=== PATIENT | female | born 1970 | race African-American/Black ===

== ENCOUNTER 2018-02-03 12:34 | Emergency (ER) | payer SELFPAY ==
[2018-02-03] MEDS ORDERED: AMLODIPINE BESYLATE 10 MG TABLET PO ONE (13:53)
--- NOTE | 2018-02-03 13:54 | ER Document Report ---
ED Blood Pressure Problem - General Chief Complaint: High Blood Pressure Stated Complaint: R SHOULDER PAIN Time Seen by Provider: 02/03/18 13:46 Notes: 47-year-old female patient to the emergency department for evaluation of hypertension and right shoulder pain. Patient states that she has had shoulder pain for approximately 2 months. Has not been taking her blood pressure medication. Made an appointment to see her primary care doctor. Went to see her primary care doctor today but her blood pressure was 210/100. They were nervous about her shoulder pain and high blood pressure and sent her to the emergency department for evaluation. Patient states that she has not been taking her blood pressure medications and that is the reason why her her blood pressure is high. States that her shoulder has been achy for approximately 2 months now and it is affecting her workouts. She denies any chest pain, shortness of breath, cardiac symptoms or other issues at this time. TRAVEL OUTSIDE OF THE [place] IN LAST 30 DAYS: No - HPI Onset/Duration: Gradual Severity: Mild Pain Level: 1 - Related Data Allergies/Adverse Reactions: No Known Allergies Allergy (Verified 02/03/18 12:36) Past Medical History - General Information source: Patient - Social History Smoking Status: Current Every Day Smoker Chew tobacco use (# tins/day): No Frequency of alcohol use: Occasional Drug Abuse: None Lives with: Family Family History: Reviewed & Not Pertinent Patient has suicidal ideation: No Patient has homicidal ideation: No - Past Medical History Cardiac Medical History: Reports: Hx Hypertension Renal/ Medical History: Denies: Hx Peritoneal Dialysis Review of Systems - Review of Systems Notes: Constitutional: denies: Chills, Diaphoresis, Fever, Malaise, Weakness EENT: denies: Eye discharge, Blurred vision, Tearing, Double vision, Nose congestion, Nose discharge, Throat swelling, Mouth pain Cardiovascular: denies: Palpitations, Heart racing, Orthopnea, Dyspnea, Chest pain. Does complain of hypertension but has not been taking her medications. Respiratory: denies: Cough, Hurts to breathe, Wheezing, Shortness of breath Gastrointestinal: denies: Abdominal pain, Diarrhea, Nausea, Vomiting, Black stools, bright red blood in stool Genitourinary: denies: Burning, Dysuria, Discharge, Frequency, Flank pain, Hematuria Musculoskeletal: Complains of right shoulder pain, stiffness in the right shoulder, no swelling. Hematologic/Lymphatic: denies: Anemia, Easy bleeding, Easy bruising, Blood clots Neurological/Psychological: denies: Confusion, Dementia, Depression, Loss of consciousness Skin: No lesions, no masses, no skin breakdown, no abscesses Physical Exam - Vital signs Vitals: Temp Pulse Resp BP Pulse Ox 98.9 F 73 18 151/93 H 100 02/03/18 13:02 02/03/18 13:02 02/03/18 13:02 02/03/18 13:02 02/03/18 13:02 Interpretation: Bradycardic - General General appearance: Appears well, Alert - HEENT Head: Normocephalic, Atraumatic Eyes: Normal Pupils: PERRL - Respiratory Respiratory status: No respiratory distress Chest status: Nontender Breath sounds: Normal Chest palpation: Normal - Cardiovascular Rhythm: Bradycardia, Other - Manual heart rate 54 Heart sounds: Normal auscultation Murmur: No - Abdominal Inspection: Normal Distension: No distension Bowel sounds: Normal Tenderness: Nontender Organomegaly: No organomegaly - Back Back: Normal, Nontender - Extremities General upper extremity: Normal inspection, Normal color, Normal ROM, Normal temperature, Other - There is point tenderness with provocation at the biceps tendon insertion on the right anterior shoulder. General lower extremity: Normal inspection, Nontender, Normal color, Normal ROM , Normal temperature, Normal weight bearing. No: Vickie's sign - Neurological Neuro grossly intact: Yes Cognition: Normal Orientation: AAOx4 [place] Coma Scale Eye Opening: Spontaneous [place] Coma Scale Verbal: Oriented [place] Coma Scale Motor: Obeys Commands Gene Coma Scale Total: 15 Speech: Normal Motor strength normal: LUE, RUE, LLE, RLE Sensory: Normal - Psychological Associated symptoms: Normal affect, Normal mood - Skin Skin Temperature: Warm Skin Moisture: Dry Skin Color: Normal Course - Re-evaluation Re-evalutation: 02/03/18 15:26 Well-appearing female in no acute distress who has not been taking her blood pressure medications so her blood pressure is elevated. Received some clonidine at the doctor's office and sent here. I did give her amlodipine while she was here since she had not taken it. Patient adamantly denies any other symptoms. Adamantly states that her shoulder pain is been there for 2 months and is not related to her hypertension. I did an EKG which showed sinus bradycardia with some nonspecific T-wave abnormalities and LVH. I do not think this represents an acute cardiac condition. At this time I am recommending that she follow-up with her regular doctor to have her shoulder evaluated further and to restart her blood pressure medications. States that her blood pressure medications were called in to her primary care doctor and the pharmacist has notified her since she is in the emergency department that prescriptions are ready for pickup. Will DC at this time. - Vital Signs Vital signs: Temp Pulse Resp BP Pulse Ox 98.9 F 73 18 145/94 H 100 02/03/18 13:02 02/03/18 13:02 02/03/18 13:02 02/03/18 15:14 02/03/18 13:02 - EKG Interpretation by Me EKG shows normal: [place], Intervals, QRS Complexes, ST-T Waves - Nonspecific T- wave with some biphasic T waves in the anterior lateral leads. No priors are available for comparison. Rate: Bradycardia Discharge - Discharge Clinical Impression: Hypertension Qualifiers: Hypertension type: unspecified Qualified Code(s): I10 - Essential (primary) hypertension Right shoulder pain Qualifiers: Chronicity: chronic Qualified Code(s): M25.511 - Pain in right shoulder Disposition: HOME, SELF-CARE Instructions: High Blood Pressure, Requiring Treatment ([facility]) Additional Instructions: Please follow-up with your regular doctor for repeat evaluation of your shoulder. There appears to be no pathology seen on x-ray however more advanced testing may be needed in the future.
--- NOTE | 2018-02-03 14:39 | RADIOLOGY REPORT (SQ) ---
EXAM DESCRIPTION: SHOULDER RIGHT 2 OR MORE VIEWS COMPLETED DATE/TIME: 02/03/2018 2:28 pm REASON FOR STUDY: shoulder pain COMPARISON: None. NUMBER OF VIEWS: Three views. TECHNIQUE: Internal rotation, external rotation, and Y view images acquired of the right shoulder. LIMITATIONS: None. FINDINGS: MINERALIZATION: Normal. BONES: No acute fracture or dislocation. No worrisome bone lesions. JOINTS: No dislocation. VISUALIZED LUNGS AND RIBS: No pneumothorax. No rib fracture. SOFT TISSUES: No radiopaque foreign body. OTHER: No other significant finding. IMPRESSION: NEGATIVE STUDY OF THE RIGHT SHOULDER. NO RADIOGRAPHIC EVIDENCE OF ACUTE INJURY. TECHNICAL DOCUMENTATION: JOB ID: [id number] [employer]- All Rights Reserved Reading location - IP/workstation name: [facility]-RR2
[2018-02-03 15:15] VITALS: BP 145/94
--- NOTE | 2018-02-03 19:24 | EKG REPORT ---
SEVERITY:- ABNORMAL ECG - SINUS BRADYCARDIA CONSIDER LEFT VENTRICULAR HYPERTROPHY NONSPECIFIC T ABNORMALITIES, INFERIOR LEADS : Confirmed by: Luigi Chavez MD 03-Feb-2018 19:24:09
== END 2018-02-03 15:24 | disposition home or self-care (01) ==
LOC: ER 12:34
DX: M25.511 Pain in right shoulder (principal); I10 Essential (primary) hypertension; F17.200 Nicotine dependence, unspecified, uncomplicated
CPT/HCPCS: 93005; 93010; 99283